=== PATIENT | male | born 1995 | race African-American/Black ===

== ENCOUNTER 2020-09-08 07:41 | Emergency (ER) | payer MEDICAID, SELFPAY ==
[2020-09-08 07:52] VITALS: BP 130/83; PULSE 91; RESP 16; TEMP 37.1; O2SAT 98; BMI 26.2
--- NOTE | 2020-09-08 08:30 | PC.NURSE ---
JENNYP (LYUDMILA) AT BEDSIDE, PT AWARE OF PLAN OF CARE.
--- NOTE | 2020-09-08 08:38 | CT_ITS ---
EXAMINATION: CT HEAD WITHOUT CONTRAST CLINICAL INFORMATION: Headache and vomiting COMPARISON: None TECHNIQUE: Contiguous axial imaging was performed from the skull base to vertex without intravenous administration of contrast. This CT examination was performed using dose optimization techniques as appropriate, variously including the following: *Automated exposure control *Adjustment of mA and/or kV according to patient size (this includes techniques or standardized protocols for targeted exams where dose is matched to indication/reason for exam; i.e. extremities or head) *Use of iterative reconstruction technique DLP: 828 mGy-cm FINDINGS: There is no evidence of acute intracranial hemorrhage or territorial infarction. No abnormal mass effect or midline shift is seen. [place] to white matter differentiation is well preserved. No extra-axial fluid collections are identified. The ventricles are normal in size. There is no abnormal attenuation within the brain parenchyma. The osseous structures are normal. There are small polyps or cysts in the right maxillary and sphenoid sinuses. IMPRESSION: No acute intracranial findings.
--- NOTE | 2020-09-08 08:40 | XR_ITS ---
EXAMINATION: XR CHEST CLINICAL INFORMATION: Headache, vomiting COMPARISON: Chest radiographs 11/14/2010 TECHNIQUE: Portable upright AP view of the chest was obtained. FINDINGS: The lungs are clear. There is no airspace consolidation, pleural reaction, or visible effusion. The heart is normal in size. The hilar and mediastinal contours are normal. IMPRESSION: Unremarkable examination.
--- NOTE | 2020-09-08 08:52 | ED_ITS ---
HPI - Headache General Chief Complaint: Headache Stated Complaint: HEADACHE Time Seen by Provider: 09/08/20 08:27 Source: patient Mode of arrival: ambulatory Limitations: no limitations History of Present Illness HPI Narrative: 25-year-old male with no known medical history here with generalized headache for the last 3-4 days. The patient says that he has a generalized headache with photophobia and nausea and vomiting. For the last 48 hours he has had a fever with a max temp of 101.8 degrees. He also has ass ociated neck pain. No upper respiratory symptoms, abdominal pain, diarrhea. Denies sick contact. denies substance use. Had testing for COVID yesterday, results pending. MD elicited complaint: headache Onset description: gradually Location: generalized Severity: moderate Quality & Timing: constant Exacerbating factors: light and noise Relieving factors: nothing Associated symptoms: fever, nausea, vomiting, neck stiffness, photophobia and sensitivity to sound Treatments prior to arrival: acetaminophen, ibuprofen and other ( Excedrin) Related Data Previous Rx's Medication Instructions Recorded cyclobenzaprine 10 mg PO TID PRN #10 tab 09/08/20 ibuprofen 800 mg PO Q8H PRN #20 tab 09/08/20 Allergies Allergy/AdvReac Type Severity Reaction Status Date / Time No Known Allergies Allergy Unverified 08/10/20 16:25 Review of Systems Review of Systems: Yes all other systems are reviewed and are negative Constitutional: Constitutional: Reports no additional constitutional complaints, Denies body ache(s), Denies chills, Reports fever(s), Reports headache(s) and Denies weakness Eyes: Eyes: Reports no additional eye complaints, Denies change in vision and Reports photophobia ENT: Reports system reviewed and no additional complaints, except as documented, Denies dizziness, Reports headache(s), Denies nasal congestion, Denies nasal discharge and Reports neck pain Cardiovascular: Cardiovascular: Reports no additional cardiovascular complaints, Denies chest pain, Denies leg edema and Denies dyspnea Respiratory: Respiratory: Reports no additional respiratory complaints, Denies cough and Denies dyspnea Gastrointestinal: Gastrointestinal: Reports no additional gastrointestinal complaints, Denies abdominal pain, Denies diarrhea, Denies nausea and Denies vomiting Genitourinary: Genitourinary: Denies urinary incontinence Musculoskeletal: Musculoskeletal: Reports no additional musculoskeletal complaints, Denies back pain, Denies arthralgias, Denies joint swelling, Reports neck pain, Denies numbness and Denies tingling Integumentary/Breasts: Skin/Breast: Reports system reviewed and no additional complaints, except as docu and Denies rash Neurologic: Reports system reviewed and no additional complaints, except as documented, Denies Abnormal speech present, Denies dizziness, Reports headach e(s), Denies numbness, Denies tingling and Denies weakness PMFSH Past Medical History Attestation statement: The following information was validated with the patient. Source: nursing notes reviewed Medical History Head ache Shingles Social History Social History Alcohol intake: never Smoking Status: Current every day smoker Use of substances other than those prescribed or required for medical reasons: No Advance Directives: No Advance Directives Information Provided: Yes Physical Exam Vital Signs: Vital Signs: Vital Signs Temp Pulse Resp BP Pulse Ox 09/08/20 11:58 98.2 F 63 18 119/74 09/08/20 10:30 68 14 116/70 09/08/20 10:05 74 16 129/77 09/08/20 07:52 98.8 F 91 16 130/83 98 Body Mass Index 26.2 Const: General: cooperative, healthy appearing, comfortable and no acute distress Orientation/consciousness: patient oriented x3 Limitations: no limitations HENMT: Head: Yes normal to inspection Ears: hearing grossly normal bilaterally General nose exam: Normal external nose present Face and sinus: Yes normal facial exam Mouth: Normal oral and palatal mucosa present Throat: Yes posterior oropharynx normal Eyes: Other: Positive photophobia General: appearance normal, both eyes and all related structures Visual Hebert: normal visual hebert by confrontation Periorbital: periorbital findings normal Eyelids: Yes eyelids normal Conjunctivae: conjunctivae normal Pupils: Equal, round and reactive pupils present EOM: EOMs intact bilaterally Direct Ophthalmoscopy: photophobia Neck: Other: no lymphadenopathy. Patient has neck pain with midline tenderness at the cervical spine with pain with hyperflexion of the neck and right and left lateral rotation. Neck: Yes normal visual inspection Chest: Chest palpation & inspection: normal inspection of the chest Resp: Effort & Inspection: normal respiratory effort Auscultation: clear to auscultation bilaterally Cardio: Rate: regular rate Rhythm: regular rhythm Peripheral pulses: Peripheral pulses 2+ throughout GI: Inspection: Yes normal to inspection Palpation (GI): Soft to palpation and nontender Auscultation: normal bowel sounds Back/Spine/Pelvis: Thoracic/Lumbar Spine: thoracic and lumbar spine normal to inspection Skin: General skin exam: no rashes or lesions noted Neuro: General: patient oriented x3, no focal motor deficits and normal sensation to monofilament Cranial nerves: Yes CN's II-XII intact bilaterally, Yes Equal, round and reactive pupils present and Yes Bilaterally intact EOM present Cognition (Neuro): normal cognition Speech: No Abnormal speech present Gait exam (Neuro): Normal gait present Motor exam (neuro): 5/5 motor strength present throughout Sensory Exam: Normal double simultaneous stimulation for sensation Extrem: General: Yes normal to inspection Course Course Course Narrative: Patient here with headache, subjective fevers, neck pain, vomiting for the last few days. Will require labs including blood cultures, lactic acid, Ct head, CXR, UA and possible LP. Reevaluation(s) Reevaluation #1: CT head negative. Chest x-ray unremarkable. Labs show no evidence of leukocytosis or shift. No fever here. Less likely bacterial me ningitis. Cannot completely rule out viral meningitis. Discussed performing a lumbar puncture here in the emergency department. Discussed benefits (ruling out viral meningitis), risks (post LP HAMLIN, infection, nerve damage, paralysis). At this time patient would like to hold on performing LP. 1300- Patient is feeling improved after receiving fluids, Reglan, Benadryl and Toradol here. Again refused lumbar puncture Although is aware that without this we cannot completely rule out viral meningitis. we again discussed risks versus benefits. Patient would like to be discharged home and wait for culture results before doing further interventions. Reviewed worrisome signs and symptoms. Discussed with the patient he is welcome to return at any time. Comfortable with discharge home. MDM - Headache MDM Narrative Medical decision making narrative: 25-year-old male previously healthy here with complaints of headache, subjective fevers, neck pain, nausea, vomiting. on exam neurologic is intact. The patient does have cervical tenderness specially with hyper flexion of the neck. Considered viral syndrome, COVID infection, underlying bacterial infection (meninigitis). Lab Data Result diagrams: 09/08/20 09:08 09/08/20 09:08 Labs: Lab Results 09/08/20 09/08/20 09/08/20 Range/Units 09:08 09:08 09:08 WBC 9.4 (4.8-10.8) X10*3/uL RBC 4.87 (4.60-5.80) X10*6/uL Hgb 14.5 (14.0-18.0) g/dl Hct 43.1 (42-52) % MCV 88.5 (80-98) fL MCH 29.8 (27.0-33.0) pg MCHC 33.6 (31.0-36.0) g/dl RDW 12.4 (11.0-16.0) % Plt Count 217 (160-400) X10*3/uL MPV 9.9 (9.4-12.4) fL Immature Gran % (Auto) 0.2 (0.0-0.4) % Neut % (Auto) 67.2 (45-73) % Lymph % (Auto) 17.1 L (20-40) % [place] % (Auto) 11.2 H (2-11) % Eos % (Auto) 3.4 (0-4) % Baso % (Auto) 0.9 (0-2) % Lymph # (Auto) 1.6 (1.2-4.9) X10*3/uL [place] # (Auto) 1.1 (0.1-1.2) X10*3/uL Eos # (Auto) 0.3 (0.0-0.4) X10*3/uL Baso # (Auto) 0.1 (0.0-0.2) X10*3/uL Abs Immat Gran (auto) 0.02 (0.00-0.03) X10*3/uL Absolute Neuts (auto) 6.3 (2.0-8.3) X10*3/uL Absolute Nucleated RBC 0.000 (0.0-0.012) X10*3/uL Nucleated RBC % (auto) 0.0 (0.0-0.2) /100WBC PT 16.9 H (10.8-13.0) SEC INR 1.4 H (0.9-1.1) Hold Blue Top SEE NOTE Sodium (135-145) mmol/L Potassium (3.3-5.1) mmol/l Chloride (96-108) mmol/L Carbon Dioxide (22-29) mmol/L Anion Gap (12-20) BUN (9-16) mg/dL Creatinine (0.5-1.4) mg/dL Estim Creat Clear Calc Estimated GFR Random Glucose (60-115) mg/dL Lactic Acid 0.9 (0.5-2.0) mmol/L Calcium (8.4-10.2) mg/dL Magnesium (1.6-2.6) mg/dL Total Bilirubin (0.0-1.0) mg/dL Direct Bilirubin (0.0-0.5) mg/dL AST (5-37) U/L ALT (0-40) U/L Alkaline Phosphatase (39-117) U/L Total Protein (6.5-8.0) g/dL Albumin (3.5-5.0) g/dL Urine Color Urine Appearance Urine pH (5.0-8.0) Ur Specific [place] (1.005-1.025) Urine Protein (NEG-TRACE) MG/DL Urine Glucose (UA) (NEG) MG/DL Urine Ketones (NEG) MG/DL Urine Blood (NEG) Urine Nitrite (NEG) Ur Leukocyte Esterase (NEG) Urine RBC (0) /HPF Urine WBC (0-4) /HPF Ur Squamous Epith Cells /LPF Urine Bacteria /LPF 09/08/20 09/08/20 Range/Units 09:08 10:10 WBC (4.8-10.8) X10*3/uL RBC (4.60-5.80) X10*6/uL Hgb (14.0-18.0) g/dl Hct (42-52) % MCV (80-98) fL MCH (27.0-33.0) pg MCHC (31.0-36.0) g/dl RDW (11.0-16.0) % Plt Count (160-400) X10*3/uL MPV (9.4-12.4) fL Immature Gran % (Auto) (0.0-0.4) % Neut % (Auto) (45-73) % Lymph % (Auto) (20-40) % [place] % (Auto) (2-11) % Eos % (Auto) (0-4) % Baso % (Auto) (0-2) % Lymph # (Auto) (1.2-4.9) X10*3/uL [place] # (Auto) (0.1-1.2) X10*3/uL Eos # (Auto) (0.0-0.4) X10*3/uL Baso # (Auto) (0.0-0.2) X10*3/uL Abs Immat Gran (auto) (0.00-0.03) X10*3/uL Absolute Neuts (auto) (2.0-8.3) X10*3/uL Absolute Nucleated RBC (0.0-0.012) X10*3/uL Nucleated RBC % (auto) (0.0-0.2) /100WBC PT (10.8-13.0) SEC INR (0.9-1.1) Hold Blue Top Sodium 138 (135-145) mmol/L Potassium 4.0 (3.3-5.1) mmol/l Chloride 105 (96-108) mmol/L Carbon Dioxide 27 (22-29) mmol/L Anion Gap 10 L (12-20) BUN 12 (9-16) mg/dL Creatinine 1.09 (0.5-1.4) mg/dL Estim Creat Clear Calc 132.7 Estimated GFR > 60 Random Glucose 106 (60-115) mg/dL Lactic Acid (0.5-2.0) mmol/L Calcium 9.0 (8.4-10.2) mg/dL Magnesium 2.0 (1.6-2.6) mg/dL Total Bilirubin 0.4 (0.0-1.0) mg/dL Direct Bilirubin 0.2 (0.0-0.5) mg/dL AST 25 (5-37) U/L ALT 40 (0-40) U/L Alkaline Phosphatase 103 (39-117) U/L Total Protein 7.5 (6.5-8.0) g/dL Albumin 4.3 (3.5-5.0) g/dL Urine Color YELLOW Urine Appearance CLEAR Urine pH 6.0 (5.0-8.0) Ur Specific [place] 1.020 (1.005-1.025) Urine Protein NEG (NEG-TRACE) MG/DL Urine Glucose (UA) NEG (NEG) MG/DL Urine Ketones NEG (NEG) MG/DL Urine Blood TRACE (NEG) Urine Nitrite NEG (NEG) Ur Leukocyte Esterase NEG (NEG) Urine RBC 1-4 (0) /HPF Urine WBC 0 (0-4) /HPF Ur Squamous Epith Cells 1+ /LPF Urine Bacteria NONE /LPF Discharge Plan Discharge Clinical Impression: Acute viral syndrome Patient Disposition: Home, Self-Care Instructions: Viral Syndrome (ED) Additional Instructions: return for worsening headache, severe neck pain and continued fever as discussed Wait for the results of your Covid test Increase fluids, rest Limit screen time this may make your headache worse Prescriptions: New ibuprofen 800 mg tablet 800 mg PO Q8H PRN (Reason: pain) Qty: 20 RF: 0 cyclobenzaprine 10 mg tablet 10 mg PO TID PRN (Reason: muscle spasm) Qty: 10 RF: 0 Referrals: [facility] [Primary Care Provider] - 2 days Stand Alone Forms: Work/School Release Discharge Date/Time: 09/08/20 13:04
[2020-09-08] MEDS: diphenhydrAMINE HCL 50 MG/ML VIAL 25 MG IVPUSH (09:17)
[2020-09-08 09:18] LABS: MANUAL DIFF FLAG NO
[2020-09-08] MEDS: Metoclopramide HCl 10 MG/2 ML VIAL IVPUSH (09:18)
--- NOTE | 2020-09-08 09:23 | PC.NURSE ---
ns 1l bolus initiated, scanned x 6
[2020-09-08 09:25] LABS: Basophils Absolute Auto 0.1 X10*3/uL (0.0-0.2); Basophils Percent Auto 0.9 % (0-2); Eosinophils Absolute Auto 0.3 X10*3/uL (0.0-0.4); Eosinophils Percent Auto 3.4 % (0-4); Hematocrit 43.1 % (42-52); Hemoglobin 14.5 g/dl (14.0-18.0); Imm Gran Abs Auto 0.02 X10*3/uL (0.00-0.03); Imm Gran Pct Auto 0.2 % (0.0-0.4); Lymphocytes Absolute Auto 1.6 X10*3/uL (1.2-4.9); Lymphocytes Percent Auto 17.1 % (20-40); Mean Corpuscular HGB Conc 33.6 g/dl (31.0-36.0); Mean Corpuscular Hemoglobin 29.8 pg (27.0-33.0); Mean Corpuscular Volume 88.5 fL (80-98); Mean Platelet Volume 9.9 fL (9.4-12.4); Monocytes Absolute Auto 1.1 X10*3/uL (0.1-1.2); Monocytes Percent Auto 11.2 % (2-11); Neutrophils Absolute Auto 6.3 X10*3/uL (2.0-8.3); Neutrophils Percent Auto 67.2 % (45-73); Platelet Count 217 X10*3/uL (160-400); Red Blood Count 4.87 X10*6/uL (4.60-5.80); Red Cell Distribution Width 12.4 % (11.0-16.0); White Blood Count 9.4 X10*3/uL (4.8-10.8)
[2020-09-08 09:26] LABS: INTERNATIONAL NORM RATIO 1.4 (0.9-1.1); Prothrombin Time 16.9 SEC (10.8-13.0)
[2020-09-08 09:45] LABS: Lactic Acid 0.9 mmol/L (0.5-2.0)
[2020-09-08 09:51] LABS: Alanine Aminotransferase 40 U/L (0-40); Albumin Level 4.3 g/dL (3.5-5.0); Alkaline Phosphatase 103 U/L (39-117); Anion Gap 10 (12-20); Aspartate Amino Transferase 25 U/L (5-37); Bilirubin Direct 0.2 mg/dL (0.0-0.5); Bilirubin Total 0.4 mg/dL (0.0-1.0); Blood Urea Nitrogen 12 mg/dL (9-16); Carbon Dioxide 27 mmol/L (22-29); Chloride 105 mmol/L (96-108); Creatinine Clr Calc Pharmacy 132.7; Estimated Glomerular Filt Rate > 60; Glucose Random 106 mg/dL (60-115); Sodium 138 mmol/L (135-145); Total Protein 7.5 g/dL (6.5-8.0)
[2020-09-08 10:05] VITALS: BP 129/77; PULSE 74; RESP 16
[2020-09-08 10:30] VITALS: BP 116/70; PULSE 68; RESP 14
[2020-09-08 10:31] LABS: Glucose Urine UA NEG (NEG); Leukocyte Esterase Urine NEG (NEG); Nitrite Urine NEG (NEG); Urine Blood TRACE (NEG); Urine Ketones NEG (NEG); Urine Protein NEG (NEG-TRACE)
[2020-09-08 10:41] LABS: Appearance Urine CLEAR; Color Urine YELLOW
[2020-09-08 10:46] LABS: Squamous Epithelial Cell Urine 1+ /LPF; WBC Urine 0 /HPF (0-4)
[2020-09-08] MEDS: Ketorolac Tromethamine 30 MG/ML VIAL IVPUSH (10:53)
--- NOTE | 2020-09-08 11:51 | PC.NURSE ---
patient a&ox3, patient states his headache is now a 1/10, pt speaking in full sentences, will continue to monitor.
[2020-09-08 11:58] VITALS: BP 119/74; PULSE 63; RESP 18; TEMP 36.8
--- NOTE | 2020-09-08 12:25 | PC.NURSE ---
pt moved to 19h, gave report to chito
== END 2020-09-08 13:04 | disposition home or self-care (01) ==
PROVIDERS: Nurse Practitioner Family; Emergency Provider Emergency Medicine
DX: B34.9 Viral infection, unspecified (principal); R05 Cough; Z20.828 Contact with and (suspected) exposure to other viral communicable diseases; Z79.899 Other long term (current) drug therapy
CPT/HCPCS: 36415; 70450; 71045; 80048; 80076; 81001; 83605; 83735; 85025; 85610; 87040; 96361; 96374; 96375; 99284; J1200; J1885; J2765

== ENCOUNTER 2020-09-12 17:22 | Emergency (ER) | payer MEDICAID, SELFPAY ==
[2020-09-12 18:09] VITALS: BP 116/71; PULSE 93; RESP 18; TEMP 37.4; O2SAT 99; BMI 25.9
--- NOTE | 2020-09-12 19:19 | ED.HA ---
HPI - Headache General Chief Complaint: Headache Stated Complaint: headaches 1 week Time Seen by Provider: 09/12/20 19:38 Source: patient Mode of arrival: ambulatory Limitations: no limitations History of Present Illness HPI Narrative: 25-year-old male presents with 1 week history of headaches and upper respiratory symptoms. He was seen approximately 1 week ago for headache, and was asked to return if symptoms persisted. He is asking for spinal tap lumbar puncture to rule out meningitis. He states to have headache and fatigue, but denies fevers, difficulty moving arms and legs, chest pain or pressure, palpitations, shortness of breath, abdominal pain, abdominal distention, dysuria, hematuria, and edema. MD elicited complaint: headache Onset (ago): week(s) (1) Onset description: gradually Location: diffuse Severity: severe Pain scale (0-10): 10 Quality & Timing: throbbing and constant Exacerbating factors: exertion, light and noise Relieving factors: nothing Context: occurred at rest Associated symptoms: neck stiffness Treatments prior to arrival: acetaminophen and ibuprofen Related Data Previous Rx's Medication Instructions Recorded cyclobenzaprine 10 mg PO TID PRN #10 tab 09/08/20 ibuprofen 800 mg PO Q8H PRN #20 tab 09/08/20 Allergies Allergy/AdvReac Type Severity Reaction Status Date / Time No Known Allergies Allergy Verified 09/12/20 18:08 Review of Systems Review of Systems: Constitutional: Positive headache, No Weight loss, No Fever, No Chills, No Night Sweats, No Fatigue, No Malaise ENT/Mouth: No Hearing loss, No Ear Pain, No Nasal Congestion, No Sinus Pain, No Hoarseness, No sore throat, No Rhinorrhea, No Swallowing Difficulty Eyes: No Eye Pain, No Swelling, No Redness, No Foreign Body, No Discharge, No Vision Changes Cardiovascular: No Chest Pain, No SOB, No Dyspnea on Exertion, No Orthopnea, No Edema, No Palpitations Respiratory: No Cough, No Sputum, No Wheezing, No Smoke Exposure, No Dyspnea Gastrointestinal: No Nausea, No Vomiting, No Diarrhea, No Constipation, No abdominal Pain, No Hematochezia, No Melena Genitourinary: no irregular bleeding, No Dysuria, No Urinary Frequency, No Hematuria, No Urinary Incontinence, No Urgency, No Flank Pain, No Urinary Flow Changes, No Hesitancy Musculoskeletal: No joint pain, No Myalgias, No Joint Swelling Skin: No Skin Lesions, No rash Neuro: No Weakness, No Numbness, No Paresthesias, No Loss of Consciousness, No Dizziness, No Headache Psych: No Anxiety/Panic, No Depression, No SI/HI/AH/VH, No Social Issues, Heme/Lymph: No Bruising, No Bleeding,No Lymphadenopathy Endocrine: No Polyuria, No Polydipsia, No Temperature Intolerance PMFSH Past Medical History Attestation statement: The following information was validated with the patient. Medical History Head ache Shingles Social History Social History Alcohol intake: never Smoking Status: Never smoker Advance Directives: No Advance Directives Information Provided: Yes Physical Exam Vital Signs: Vital Signs: Vital Signs Temp Pulse Resp BP Pulse Ox 09/12/20 21:24 118/72 09/12/20 21:23 73 16 98 09/12/20 19:33 98.4 F 87 18 112/75 99 09/12/20 18:09 99.3 F 93 18 116/71 99 Body Mass Index 25.9 Appearance: Alert. Oriented X3. No acute distress. Afebrile. Head: Normal external exam. Normocephalic. Atraumatic. No Boyd signs noted. No raccoon eyes noted Eyes: PERRLA. EOMI. Conjunctiva and sclera normal. Eyelids normal. ENT: EAC normal. TM's Normal. Pharynx normal. Uvula midline. Moist mucous membranes. No trismus noted. No drooling noted. No muffled voice noted. Neck: Normal inspection. Neck supple. No adenopathy. Thyroid Normal. No meningeal signs. No neck mass noted. CVS: Normal heart rate and rhythm. Heart sound normal. No murmurs noted. Pulses normal throughout. Respiratory: No respiratory distress. Painless inspiration. Breath sounds normal. No wheezes/rales/rhonchi noted. Chest nontender. No accessory muscle usage noted or decreased air movement noted. Abdomen: Soft and nontender. Bowel sounds normal in all 4 quadrants. No distention noted. No organomegaly noted. No visible injury noted. Back: No CVA tenderness. Full range of motion noted. Skin: Skin warm and dry. Normal skin color. Normal skin turgor. No rashes/lesions/lacerations noted. Extremities: No lower extremity edema. Extremities exhibit normal range of motion. Extremities nontender. Neuro: No motor deficit. strength 5/5 to all extremities. No sensory deficit. Reflexes normal to bilateral patella. Negative Brudzinski's. Negative Kernig's. Course Course Course Narrative: Patient presents with 1 week of headache, has concerns for about meningitis. After detailed history and exam, while his headache is concerning I do not feel he has meningitis. He is afebrile, has negative Kernig and Brudzinski sign, plan discussed with patient for IV hydration, pain management and Fioricet. CT scan of head 1 week ago was negative for acute findings. he does not report any trauma, loss of consciousness, pain on extraocular movements, changes in vision or loss of balance To indicate a need for repeat CT scan of head. If the pain is not alleviated with these medications then we will consider lumbar puncture, patient does agree with this plan. Re-evaluation of patient approximately 1 and 1/2 hours after medication, patient states that he does not have any pain at this time. Discussion regarding having patient discharged home with Fioricet. At this time lumbar puncture is not indicated as meningitis is low on the differential list. Patient does understand that if symptoms persist or get worse that he is welcome to return to the emergency department. He does understand that he must follow-up with his primary care as this may be migraine syndrome. Patient verbalized understanding of and agrees to plan of care discharge home. MDM - Headache Differential Diagnosis Differential diagnosis: Likely migraine, tension headache, subarachnoid hemorrhage, headache and meningitis Medical Records Attestation: I reviewed the patient's medical records. Lab Data Attestation: I reviewed the patient's lab results. Discharge Plan Discharge Clinical Impression: Headache, Migraine Patient Disposition: Home, Self-Care Instructions: Migraine Headache (ED), Acute Headache (ED) Additional Instructions: you were evaluated for headache. Please follow-up with your primary care provider as you may need further workup for possible migraine syndrome. We prescribed with Fioricet. Please take this medication as prescribed. Thank you for choosing this emergency department for evaluation. Please follow-up with primary care physician as needed. Return to the emergency department for any new, concerning, or worsening symptoms. Prescriptions: No Action ibuprofen 800 mg tablet 800 mg PO Q8H PRN (Reason: pain) Qty: 20 RF: 0 cyclobenzaprine 10 mg tablet 10 mg PO TID PRN (Reason: muscle spasm) Qty: 10 RF: 0 Interventions: ED Discharge Assessment Last Done: 09/12/20 22:02 Discharge Date/Time: 09/12/20 22:13
[2020-09-12 19:33] VITALS: BP 112/75; PULSE 87; RESP 18; TEMP 36.9; O2SAT 99
[2020-09-12] MEDS: dexAMETHasone sod phosphate 4 MG/ML VIAL 6 MG IVPUSH (20:02)
[2020-09-12] MEDS: Ketorolac Tromethamine 30 MG/ML VIAL IVPUSH (20:02)
[2020-09-12] MEDS: ondansetron HCL 4 MG/2 ML VIAL IVPUSH (20:02)
[2020-09-12] MEDS: 0.9 % Sodium Chloride 1,000 ML 999 ML IVCONT (20:02)
--- NOTE | 2020-09-12 20:14 | PC.NURSE ---
pt c/o 2/10 neck pain, residual from migraine several days ago. skin pwd, resp even and nonlaboured. medicated as per emr, pt refused fioricet.
[2020-09-12 21:23] VITALS: PULSE 73; RESP 16; O2SAT 98
[2020-09-12 21:24] VITALS: BP 118/72
== END 2020-09-12 22:13 | disposition home or self-care (01) ==
PROVIDERS: Nurse Practitioner Family; Emergency Provider Emergency Medicine Emergency Medical Services; PCP Family Medicine
DX: G43.909 Migraine, unspecified, not intractable, without status migrainosus (principal); Z20.828 Contact with and (suspected) exposure to other viral communicable diseases
CPT/HCPCS: 87635; 96361; 96374; 96375; 99284; J1100; J1885; J2405

== ENCOUNTER 2020-10-03 11:41 | Outpatient (REF) | payer MEDICAID, SELFPAY | END 2020-10-03 11:42 | disposition home or self-care (01) | LOC: HO.LAB 11:41 | PROVIDERS: Visit Provider Internal Medicine | DX: Z20.828 Contact with and (suspected) exposure to other viral communicable diseases (principal) | CPT/HCPCS: C9803; U0003 ==

== ENCOUNTER 2020-12-29 12:16 | Emergency (ER) | payer MEDICAID, SELFPAY ==
[2020-12-29 12:24] VITALS: BP 141/72; PULSE 78; RESP 16; TEMP 37.2; O2SAT 98; BMI 26.3
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
== END 2020-12-29 13:08 | disposition home or self-care (01) ==
PROVIDERS: Emergency Provider Emergency Medicine Emergency Medical Services
DX: S01.112A Laceration without foreign body of left eyelid and periocular area, initial encounter (principal); W20.8XXA Other cause of strike by thrown, projected or falling object, initial encounter; Y93.89 Activity, other specified; Y92.414 Local residential or business street as the place of occurrence of the external cause; Y99.9 Unspecified external cause status
CPT/HCPCS: 12011; 90471; 90715; 99283; 99284

== ENCOUNTER 2022-09-06 16:49 | Emergency (ER) | payer MEDICAID, SELFPAY ==
--- NOTE | ~2022-09-06 | XR_ITS ---
EXAMINATION: XR FINGER, RIGHT CLINICAL INFORMATION: Trauma COMPARISON: None TECHNIQUE: Three views of the right index finger. FINDINGS: No acute fracture or dislocation. Joint spaces are maintained. Soft tissues are unremarkable. XR/XR finger RT min 2V IMPRESSION: No acute osseous abnormality.
[2022-09-06 17:31] VITALS: BP 121/59; PULSE 85; RESP 18; TEMP 36.7; O2SAT 95; BMI 25.5
--- NOTE | 2022-09-06 17:52 | ED.EXTPRO ---
HPI - Extremity Problem General Chief complaint: Extremity Injury, Upper Stated complaint: finger inj/work inj Time Seen by Provider: 09/06/22 17:44 Source: patient Mode of arrival: ambulatory Limitations: no limitations History of Present Illness HPI Narrative: 27-year-old male no significant medical history presents to the emergency department with a work related injury with complaints of discomfort to his right index finger sp drilling into this finger with a drill at work. Patient report she was working with [employer]. Reports the discomfort is minimal, and he can move finger without difficulties. Up to date on tetanus. Denies numbness, tingling. Denies foreign body sensation. MD Complaint: extremity pain and extremity swelling Related Data Previous Rx's Medication Instructions Recorded cyclobenzaprine 10 mg tablet 10 mg PO TID PRN muscle spasm #10 09/08/20 tabs ibuprofen 800 mg tablet 800 mg PO Q8H PRN pain #20 tabs 09/08/20 cephalexin 500 mg tablet 500 mg PO Q6H 10 days #40 tabs 09/06/22 Allergies Allergy/AdvReac Type Severity Reaction Status Date / Time No Known Allergies Allergy Verified 09/06/22 17:30 Review of Systems Review of Systems: Constitutional : No Weight loss, No Fever, No Chills, No Fatigue, No Malaise ENT/Mouth : No sore throat, No Rhinorrhea Eyes: No Eye Pain, No Swelling, No Redness Cardiovascular : No Chest Pain, No SOB, No Dyspnea on Exertion, No Orthopnea, No Edema, No Palpitations Respiratory : No Cough, No Sputum, No Wheezing Gastrointestinal : No Nausea, No Vomiting, No Diarrhea, No Constipation, No abdominal Pain, No Hematochezia, No Melena Genitourinary : No Dysuria, No Urinary Frequency, No Hematuria, Musculoskeletal : + joint pain, No Myalgias, No Joint Swelling Skin : No Skin Lesions, No rash Neuro : No Weakness, No Numbness, No Dizziness, No Headache Psych : No Anxiety/Panic, No Depression All other systems reviewed and are negative Yes all other systems are reviewed and are negative [facility] Past Medical History Attestation statement: The following information was validated with the patient. Source: old records reviewed and nursing notes reviewed Medical History Head ache Shingles Social History Social History Alcohol intake: never Advance Directives: No Advance Directives Information Provided: No Physical Exam Vital Signs: Vital Signs: Last Vital Signs Temp 98.0 F 09/06/22 17:31 Pulse 85 09/06/22 17:31 Resp 18 09/06/22 17:31 BP 121/59 L 09/06/22 17:31 Pulse Ox 95 09/06/22 17:31 O2 Del Method 09/06/22 17:31 BMI result Body Mass Index 25.5 VSS Appearance: Alert.? Oriented X3.? No acute distress.? Head: Normocephalic, atraumatic, no step-offs or deformities Eyes: Pupils equal, round and reactive to light.? CVS: Normal heart rate and rhythm.? Pulses normal.? Respiratory: No respiratory distress.? Breath sounds normal.? Abdomen: Soft and nontender.? Skin: Skin warm and dry.? Normal skin color.? Normal skin turgor.? Extremities: No lower extremity edema.? No calf ttp. 5/5 strength to bilateral upper and lower extremities + puncture wound to the R. 4th finger dorsal aspect. No FB visualized. 2+ radial pulses equal and b/l. Normal cap refil to b/l UE digits. No wrist drop. Full rom to all fingers. Neuro: Oriented X 3.? No motor deficit.? No sensory deficit. Course Reevaluation(s) Reevaluation #1: Area was consult soap and water. Dermabond was applied. Patient tolerated procedure well. Educated on worrisome signs and symptoms and when to return. At this time I feel comfortable discharge. Time: 18:13 Reevaluation #2: X-ray of the right finger with no acute findings. Time: 18:14 MDM - Extremity (Nontraumatic) MDM Narrative Medical decision making narrative: [birth year]53 27 year old male presents w/ work related injury , presents with a puncture wound to the right index finger status post drilling into his finger with a drill. Up-to-date on tetanus shot. Denies numbness or tingling PE with small puncture wound to the R. 4th digit, dorsal aspect, no foreign bodies visualized, normal sensation, neurovascularly intact. Based off exam low suspicion for fractures or dislocations. Will rule out foreign bodies with x-ray. Likely puncture wound. Plan- imaging , this puncture wound cannot be approximated secondary to skin missing, therefore Dermabond will be applied to close the area. Patient will be placed in a finger splint. Medical Records Attestation: I reviewed the patient's medical records. Lab Data Attestation: I reviewed the patient's lab results. Critical Care Time Critical Care Time Critical Care Time: No Discharge Plan Discharge Clinical Impression: Work related injury, Puncture wound Patient Disposition: Home, Self-Care Additional Instructions: Take your medications as prescribed. If you were prescribed antibiotics today, it is important that you take your medication to their entirety, do not skip any doses, do not finish them early. Follow-up with your primary care provider this week. Return to the emergency department with new or worsening symptoms. Such as fevers, chills, chest pain, shortness of breath, nausea, vomiting, dizziness, headache, vision changes, lethargy In case of emergency call 911 Follow-up with work connection Prescriptions: New cephalexin 500 mg tablet 500 mg PO Q6H 10 Days Qty: 40 0RF No Action ibuprofen 800 mg tablet 800 mg PO Q8H PRN (Reason: pain) Qty: 20 0RF cyclobenzaprine 10 mg tablet 10 mg PO TID PRN (Reason: muscle spasm) Qty: 10 0RF Referrals: [facility] [Primary Care Provider] - 2 days Stand Alone Forms: Work/School Release
== END 2022-09-06 20:01 | disposition home or self-care (01) ==
PROVIDERS: Emergency Provider Emergency Medicine Emergency Medical Services
DX: S61.230A Puncture wound without foreign body of right index finger without damage to nail, initial encounter (principal); Y28.9XXA Contact with unspecified sharp object, undetermined intent, initial encounter; Y93.9 Activity, unspecified; Y92.9 Unspecified place or not applicable; Y99.0 Civilian activity done for income or pay; Z79.899 Other long term (current) drug therapy
CPT/HCPCS: 12001; 73140; 99282; 99283

== ENCOUNTER 2023-08-08 17:28 | Emergency (ER) | payer OTHER, MEDICAID, SELFPAY ==
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
[2023-08-08 18:30] VITALS: BP 113/65; PULSE 82; RESP 20; TEMP 36.8; O2SAT 98; BMI 28.6
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
== END 2023-08-08 20:39 | disposition home or self-care (01) ==
PROVIDERS: Emergency Provider Emergency Medicine Emergency Medical Services
DX: S32.010A Wedge compression fracture of first lumbar vertebra, initial encounter for closed fracture (principal); S22.080A Wedge compression fracture of T11-T12 vertebra, initial encounter for closed fracture; V43.52XA Car driver injured in collision with other type car in traffic accident, initial encounter; Y93.89 Activity, other specified; Y92.414 Local residential or business street as the place of occurrence of the external cause; Y99.9 Unspecified external cause status
CPT/HCPCS: 72100; 99282; 99283

== ENCOUNTER 2023-09-10 16:12 | Outpatient (REF) | payer OTHER, MEDICAID, SELFPAY ==
[2023-09-10 17:25] LABS: MANUAL DIFF FLAG NO
[2023-09-10 17:30] LABS: Basophils Absolute Auto 0.1 X10*3/uL (0.0-0.2); Basophils Percent Auto 1.2 % (0-2); Eosinophils Absolute Auto 0.3 X10*3/uL (0.0-0.4); Eosinophils Percent Auto 3.7 % (0-4); Hematocrit 41.2 % (42.0-52.0); Imm Gran Abs Auto 0.03 X10*3/uL (0.00-0.03); Imm Gran Pct Auto 0.3 % (0.0-0.4); Lymphocytes Absolute Auto 3.4 X10*3/uL (1.2-4.9); Lymphocytes Percent Auto 37.3 % (20-40); Mean Corpuscular Hemoglobin 30.2 pg (27.0-33.0); Mean Corpuscular Volume 88.8 fL (80.0-98.0); Mean Platelet Volume 10.2 fL (9.4-12.4); Monocytes Absolute Auto 0.7 X10*3/uL (0.1-1.2); Monocytes Percent Auto 8.1 % (2-11); Neutrophils Absolute Auto 4.5 x10*3/uL (2.0-8.3); Neutrophils Percent Auto 49.4 % (45-73); Platelet Count 233 X10*3/uL (160-400); Red Blood Count 4.64 X10*6/uL (4.60-5.80); Red Cell Distribution Width 12.9 % (11.0-16.0); White Blood Count 9.1 X10*3/uL (4.8-10.8)
[2023-09-10 17:37] LABS: Alanine Aminotransferase 26 U/L (0-40); Albumin Level 4.5 g/dL (3.5-5.0); Alkaline Phosphatase 71 U/L (39-117); Anion Gap 13 (12-20); Aspartate Amino Transferase 24 U/L (5-37); Bilirubin Total 0.8 mg/dL (0.0-1.0); Blood Urea Nitrogen 10 mg/dL (9-16); Calcium 9.9 mg/dL (8.4-10.2); Carbon Dioxide 25 mmol/L (22-29); Chloride 104 mmol/L (96-108); Estimated Glomerular Filt Rate > 60; Glucose Random 84 mg/dL (60-115); Sodium 138 mmol/L (135-145); Total Protein 7.9 g/dL (6.5-8.0)
[2023-09-10 18:15] LABS: Appearance Urine Clear; Color Urine Yellow; Glucose Urine UA Negative (Negative); Leukocyte Esterase Urine Negative (Negative); Nitrite Urine Negative (Negative); Specific Gravity - Urine 1.015 (1.005-1.025); Urine Blood Negative (Negative); Urine Ketones Negative (Negative); Urine Protein Negative (Neg-Trace)
[2023-09-10 18:23] LABS: Bacteria Urine None Seen (None Seen); Hyaline Casts Urine 0-2 /LPF (0-2); RBC Urine 0-2 /HPF (0-2); Squamous Epithelial Cell Urine 0-2 /HPF (0-2); WBC Urine 0-5 /HPF (0-5)
[2023-09-11 02:46] LABS: CT PCR NOT DETECTED (Not Detect.); NG PCR NOT DETECTED (Not Detect.)
== END 2023-09-10 16:13 | disposition home or self-care (01) ==
LOC: HO.HHCL 16:12
PROVIDERS: Visit Provider Student in an Organized Health Care Education/Training Program
DX: R39.9 Unspecified symptoms and signs involving the genitourinary system (principal); Z20.2 Contact with and (suspected) exposure to infections with a predominantly sexual mode of transmission
CPT/HCPCS: 0353U; 80053; 81001; 85025

== ENCOUNTER 2024-07-14 15:27 | Emergency (ER) | payer OTHER, MEDICAID, SELFPAY ==
[2024-07-14 15:40] VITALS: BP 121/78; PULSE 78; RESP 18; TEMP 36.8; O2SAT 98; BMI 30.3
--- NOTE | 2024-07-14 15:46 | ED_ITS ---
HPI - General Adult General Chief complaint: Wound/Laceration Stated complaint: work inj, tree debris split lip Time Seen by Provider: 07/14/24 17:35 Source: patient Mode of arrival: ambulatory Limitations: no limitations History of Present Illness ED Provider: Ladan Dickey PA-C HPI narrative: Patient is a 29 year old assigned male at with no reported medical history presenting to the emergency department today with a lower lip laceration. Patient states that he got hit in the mouth by a tree branch while at work. Patient states that he is up to date on tetanus. Patient denies any dizziness, lightheadedness, abdominal pain, nausea, vomiting, fever, chills, blurry vision, double vision, loss of vision, chest pain, difficulty breathing, shortness of breath, back pain, night sweats, pain with urination, increased urinary frequency, increased urinary urgency, blood in his urine or stool, syncope or a near syncopal episode, bowel incontinence, bladder incontinence, or any other complaints at this time. Location: mouth Severity: mild Relieving factors: none Exacerbating factors: none Associated symptoms: denies other symptoms Treatments prior to arrival: none Related Data Previous Rx's ?Medication ?Instructions ?Recorded cyclobenzaprine 10 mg tablet 10 mg PO TID PRN muscle spasm #10 09/08/20 tabs ibuprofen 800 mg tablet 800 mg PO Q8H PRN pain #20 tabs 09/08/20 cephalexin 500 mg tablet 500 mg PO Q6H 10 days #40 tabs 09/06/22 lidocaine 5 % topical patch 1 patch topical DAILY #15 ea 08/08/23 amoxicillin 875 mg-potassium 1 tab PO BID 10 days #20 tabs 07/14/24 clavulanate 125 mg tablet Allergies Allergy/AdvReac Type Severity Reaction Status Date / Time No Known Allergies Allergy Verified 07/14/24 15:45 Review of Systems 2 Constitutional: Constitutional: Reports no additional constitutional complaints, Denies chills, Denies fever(s) and Denies night sweats Eyes: Eyes: Reports no additional eye complaints, Denies blurry vision, Denies change in vision, Denies diplopia, Denies eye discharge, Denies loss of vision and Denies eye pain ENT: Denies dizziness Comments: lower lip laceration Cardiovascular: Cardiovascular: Reports no additional cardiovascular complaints, Denies chest pain, Denies lightheadedness, Denies Loss of Consciousness and Denies dyspnea Respiratory: Respiratory: Reports no additional respiratory complaints and Denies dyspnea Gastrointestinal: Gastrointestinal: Reports no additional gastrointestinal complaints, Denies abdominal pain, Denies melena, Denies hematochezia, Denies change in bowel habits and Denies change in stool character Genitourinary: Genitourinary: Reports no additional male genitourinary complaints, Denies hematuria, Denies oliguria, Denies difficulty urinating, Denies dysuria, Denies urinary frequency, Denies urinary hesitancy, Denies urinary incontinence and Denies urinary urgency Musculoskeletal: Musculoskeletal: Reports no additional musculoskeletal complaints, Denies numbness and Denies tingling Neurologic: Denies dizziness, Denies loss of vision, Denies numbness and Denies tingling Psychiatric: Psychiatric: Reports no additional psychiatric complaints Endocrine: Endocrine: Reports no additional endocrine complaints Hematologic/Lymphatic: Hematologic/Lymphatic: Reports no additional hematologic/lymphatic complaints Allergic/Immunologic: Allergic/Immunologic: Reports no additional allergic/immunologic complaints [facility] Past Medical History Attestation statement: The following information was validated with the patient. Source: old records reviewed and nursing notes reviewed Medical History Head ache Shingles Social History Social History Alcohol intake: never Advance Directives: No Advance Directives Information Provided: No Do you have a plan to hurt others: No Plan Physical Exam ED Vital Signs: Vital Signs - 24 hr 07/14/24 15:40 07/14/24 19:05 Temperature 98.2 F 98.2 F Pulse Rate 78 78 Respiratory Rate 18 18 Blood Pressure 121/78 121/78 Pulse Oximetry 98 98 Oxygen Delivery Method Room Air Room Air BMI result Body Mass Index 30.3 Const General: cooperative, no acute distress, alert and awake Nutritional Appearance: well nourished Orientation/consciousness: patient oriented x3 Limitations: no limitations HENMT Head: Yes normal to inspection and Yes atraumatic Ears: hearing grossly normal bilaterally and external ears normal General nose exam: Normal external nose present, no nasal discharge noted and no epistaxis Face and sinus: Yes normal facial exam and No abrasion Face images: 2 1. 0.5cm oval type laceration that minimally crosses the [place] boarder Mouth: Normal oral and palatal mucosa present, no drooling and no muffled voice Eyes General: appearance normal, both eyes and all related structures Periorbital: periorbital findings normal Eyelids: Yes eyelids normal Conjunctivae: conjunctivae normal Pupils: Equal, round and reactive pupils present EOM: EOMs intact bilaterally Neck Neck: Yes normal visual inspection, Yes full ROM and Yes no lymphadenopathy Chest Chest palpation & inspection: normal inspection of the chest Resp Effort & Inspection: normal respiratory effort and able to speak in complete sentences GI Inspection: Yes normal to inspection Neuro General: patient oriented x3 and moves all extremities Cranial nerves: Yes Equal, round and reactive pupils present Cognition (Neuro): normal cognition Extrem General: Yes normal to inspection, Yes full ROM and Yes capillary refill normal Psych Appearance: grossly normal Mental Status: mental status grossly normal Affect: normal affect Attitude: cooperative Thought process: Normal thought process present Thought content: Normal thought content present Insight: Good insight present (Psych) Course Course Course Narrative: RME, this is a rapid medical exam performed by Vlad Chao please refer to primary provider for complete H&P- 29-year-old male presents for evaluation of a small laceration to the right lower lip. It is about a 1 cm laceration of the lip that approaches the yoselin border. Will require closure Medications Administered Discontinued Medications Generic Name Dose Route Start Last Admin Trade Name Mayte PRN Reason Stop Dose Admin Lidocaine HCl 1 appl 07/14/24 17:43 07/14/24 17:49 Lidocaine 4 % Cream Kit TOPICAL 07/14/24 17:44 1 appl ONCE ONE Administration Protocol Procedures Laceration Laceration 1: Site: lip Side (If applicable): right Size (cm): 0.5 Description: involves y[place]elin border Depth: simple, single layer Local Anesthetic: lidocaine 1% Pre-repair: wound explored, irrigated extensively and deep structures intact Skin layer closed with: vicryl Size (cm): 5-0 Number of sutures: 2 Technique: simple, interrupted Medical Decision Making Medical Decision Making MDM Narrative: Patient is a 29 year old assigned male at with no reported medical history presenting to the emergency department today with a right sided lower lip laceration. Patient's physical exam was as noted in the physical exam portion of this note. I explained my physical exam findings to the patient. I answered all questions asked by the patient. Patient's laceration was repaired with 2 dissolvable sutures, without incident, per procedure note. I stressed the importance of the patient taking his medication as directed (either prescribed or as the over the counter packaging recommends). I stressed the importance of the patient following up with his primary care provider. I stressed the importance of the patient returning to the emergency department immediately if his symptoms were to worsen or if he were to develop any dizziness, shortness of breath, difficulty breathing, chest pain, blurry vision, loss of vision, nausea, vomiting, abdominal pain, fever, chills, back pain, or any other complaints. Patient verbalized agreement and understanding with this treatment plan and discharge. Differential Diagnosis Differential Diagnoses: The differential diagnosis associated with the presentation includes Lower lip laceration Admission/Observation Consideration of admission/observation: Escalation of care including admission/observation considered Patient would have been admitted to the hospital had his clinical presentation warranted hospital admission. Tests considered The following testing was considered but not selected: I considered obtaining a CT scan of the head, c-spine, and face however, the patient's current clinical presentation and mechanism of injury does not warrant this. I discussed this with the patient who verbalized understanding and agreement. Prescription Management I considered prescription management with: Antibiotic (given patient's mechanism of injury and current clinical presentation, will cover with prophylactic ABX) Discharge Plan Discharge Clinical Impression: Laceration Patient Disposition: Home, Self-Care Instructions: Care For Your Absorbable Stitches (ED) Additional Instructions: Follow up with your primary care provider and given this was a work place injury, work connection. Return to the emergency department immediately if your symptoms worsen or if you develop any dizziness, shortness of breath, difficulty breathing, chest pain, blurry vision, loss of vision, nausea, vomiting, abdominal pain, fever, chills, back pain, or any other complaints. Prescriptions: New amoxicillin-pot clavulanate 875-125 mg tablet 1 tab PO BID 10 Days Qty: 20 0RF No Action ibuprofen 800 mg tablet 800 mg PO Q8H PRN (Reason: pain) Qty: 20 0RF cyclobenzaprine 10 mg tablet 10 mg PO TID PRN (Reason: muscle spasm) Qty: 10 0RF cephalexin 500 mg tablet 500 mg PO Q6H 10 Days Qty: 40 0RF lidocaine 5 % adhesive patch,medicated 1 patch topical DAILY Qty: 15 0RF Rx Instructions: leave on most painful area for up to 12 hrs Referrals: [facility] [place] Family Medicine [Provider Group] (Call to establish and follow up with a primary care provider. If you already have a primary care provider, please follow up with them.) [facility] [place] Primary Care, [place] [Provider Group] (Call to establish and follow up with a primary care provider. If you already have a primary care provider, please follow up with them.) [facility] [place] Primary Care,Scott [Provider Group] (Call to establish and follow up with a primary care provider. If you already have a primary care provider, please follow up with them.) [facility] [Provider Group] (Given this was a work place injury, please call to establish and follow up with work connection.) Stand Alone Forms: Work/School Release Interventions: ED Discharge Assessment Last Done: 07/14/24 19:05 Discharge Date/Time: 07/14/24 19:05 Print Language: [place] Islander
--- OUTSIDE RECORDS SUMMARY | 2024-07-14 17:35 | XMS_ITS | Continuity of Care Document ---
Author Organization [facility] Address [address] [place] [id number]- Care Team Providers Care English As A Second Language Instructor Name Role Phone Not on Staff, PCP Primary Care Physician Unavail able Encounter [facility] Date(s): 09/15/23 - 10/15/23 [facility] [address] [place] [id number]- Allergies, Adverse Reactions, Alerts No Known Medication Allergies Medications bacitracin ophthalmic 500 u/gm ointment See Instructions, 0.25 inches right eyelid Every 4 hours, # 3.5 Gm, 0 Refills, Maintenance, 11/28/16 20:27:24, Ointment Start Date: 11/28/16 Status: Ordered gabapentin 300 mg oral capsule 300 mg, 1, capsule, By Mouth, 3 times a day, PRN, # 90 capsule, Refills 0, Tot. Refills 0, Maintenance, Pain , Moderate, 11/28/16 20:43:35, Print Requisition Start Date: 11/28/16 Status: Ordered Social History Social History Type Response Smoking Status Current every day sm oker; Type: Cigarettes; Tobacco use times per day: 2-3 cigarettes per day; entered on: 11/28/16 Sex Patient Care team information Care Team Personnel Name: Not on Staff, PCP Position: S Physician (General Medicine) Member Role: PCP
[2024-07-14] MEDS: Lidocaine 4 % Cream KIT 1 APPL TOPICAL (17:49)
[2024-07-14 19:05] VITALS: BP 121/78; PULSE 78; RESP 18; TEMP 36.8; O2SAT 98
== END 2024-07-14 19:05 | disposition home or self-care (01) ==
PROVIDERS: Emergency Provider Emergency Medicine
DX: S01.511A Laceration without foreign body of lip, initial encounter (principal); W22.8XXA Striking against or struck by other objects, initial encounter; Y93.9 Activity, unspecified; Y92.9 Unspecified place or not applicable; Y99.0 Civilian activity done for income or pay
CPT/HCPCS: 12011; 99283; 99284

== ENCOUNTER 2024-10-09 06:30 | Emergency (ER) | payer MEDICAID, SELFPAY ==
--- NOTE | ~2024-10-09 | CT_ITS ---
EXAMINATION: CT ABDOMEN AND PELVIS WITH CONTRAST CLINICAL INFORMATION: Right upper quadrant epigastric pain. COMPARISON: Most recent abdominal ultrasound dated 04/23/2019. TECHNIQUE: Multidetector volumetric images were obtained from the superior aspect of the liver through the pubic symphysis following administration 85 mL of Omnipaque 350 intravenous contrast. Sagittal and coronal reformatted images were obtained on the technologist's workstation. Oral contrast: No This CT examination was performed using dose optimization techniques as appropriate, variously including the following: *Automated exposure control *Adjustment of mA and/or kV according to patient size (this includes techniques or standardized protocols for targeted exams where dose is matched to indication/reason for exam; i.e. extremities or head) *Use of iterative reconstruction technique DLP: 720 mGy-cm FINDINGS: LUNG BASES: The visualized lung bases are unremarkable. LIVER, GALLBLADDER, AND BILIARY TREE: The liver is normal in size, shape, and attenuation. No focal hepatic lesion or biliary ductal dilatation is present. The gallbladder is unremarkable with no evidence of radiopaque gallstones, gallbladder wall thickening, or obvious pericholecystic inflammatory changes. PANCREAS: Unremarkable. SPLEEN: Unremarkable. ADRENAL GLANDS: Unremarkable. KIDNEYS AND URETERS: The kidneys are normal in size, shape, and attenuation. No hydronephrosis, hydroureter, or calculi seen. No perinephric stranding. BLADDER: Unremarkable. GASTROINTESTINAL TRACT: No small- or large-bowel obstruction. No bowel wall thickening or inflammatory change. Unremarkable appendix. PERITONEAL CAVITY: No intra-abdominal free air or free fluid. No intra-abdominal mass or organized fluid collection/abscess formation. ABDOMINAL WALL: No significant hernia is appreciated. LYMPH NODES: No lymphadenopathy. VASCULAR: Unremarkable. PELVIC VISCERA: The prostate and seminal vesicles are unremarkable. OSSEOUS STRUCTURES: Unremarkable. CT/CT abdomen pelvis w IV con IMPRESSION: 1. No small- or large-bowel obstruction. No bowel wall thickening or inflammatory change. Unremarkable appendix. 2. No intra-abdominal mass, lymphadenopathy, or ascites. Fleischner guidelines were followed. Electronically signed by: Terry Badillo MD 10/09/2024 09:50 AM [facility] [place]: -[id number]
--- NOTE | ~2024-10-09 | US_ITS ---
EXAMINATION: US SCROTUM CLINICAL INFORMATION: Pain and blood in urine. COMPARISON: None available. TECHNIQUE: A sonogram of the scrotum was performed assessing acosta-scale appearance and color Doppler flow. Spectral Doppler analysis of the arterial and venous flow were performed in the testes bilaterally. FINDINGS: RIGHT: Right testicle measures 4.7 x 2.3 x 3.0 cm, volume 16 mL. No focal testicular parenchymal lesions are visualized. Spectral Doppler analysis of the arterial and venous flow is increased in the right testis. Right epididymal head demonstrates increased vascularity but normal in size. Small hydrocele but no varicocele is seen. Right epididymal Doppler flow is increased. Tiny 3 mm epididymal cysts most consistent with a spermatocele. Minor microlithiasis incidentally noted. LEFT: Left testicle measures 4.6 x 2.1 x 3.1 cm, volume 16 mL. No focal testicular parenchymal lesions are visualized. Spectral Doppler analysis of the arterial and venous flow is increased in the left testis. Left epididymal head is normal in size. Small complex hydrocele but no Left epididymal Doppler flow is US/US scrotum IMPRESSION: Findings most consistent with right-sided greater than left epididymoorchitis. No abscess. Small bilateral hydroceles. Electronically signed by: Cuong Medina MD 10/09/2024 10:59 AM [facility]
--- NOTE | ~2024-10-09 | US_ITS ---
EXAMINATION: US SCROTUM CLINICAL INFORMATION: Pain and blood in urine. COMPARISON: None available. TECHNIQUE: A sonogram of the scrotum was performed assessing acosta-scale appearance and color Doppler flow. Spectral Doppler analysis of the arterial and venous flow were performed in the testes bilaterally. FINDINGS: RIGHT: Right testicle measures 4.7 x 2.3 x 3.0 cm, volume 16 mL. No focal testicular parenchymal lesions are visualized. Spectral Doppler analysis of the arterial and venous flow is increased in the right testis. Right epididymal head demonstrates increased vascularity but normal in size. Small hydrocele but no varicocele is seen. Right epididymal Doppler flow is increased. Tiny 3 mm epididymal cysts most consistent with a spermatocele. Minor microlithiasis incidentally noted. LEFT: Left testicle measures 4.6 x 2.1 x 3.1 cm, volume 16 mL. No focal testicular parenchymal lesions are visualized. Spectral Doppler analysis of the arterial and venous flow is increased in the left testis. Left epididymal head is normal in size. Small complex hydrocele but no Left epididymal Doppler flow is US/US scrotum doppler IMPRESSION: Findings most consistent with right-sided greater than left epididymoorchitis. No abscess. Small bilateral hydroceles. Electronically signed by: Cuong Medina MD 10/09/2024 10:59 AM [facility]
[2024-10-09 06:41] VITALS: BP 145/87; PULSE 93; RESP 16; TEMP 36.8; O2SAT 99; BMI 30.4
--- NOTE | 2024-10-09 07:14 | ED.ABDPAIN ---
HPI - Abdominal Pain General Chief Complaint: Abdominal Pain Stated Complaint: abd pain Time Seen by Provider: 10/09/24 06:44 Source: patient and family Mode of arrival: ambulatory Limitations: no limitations History of Present Illness ED Provider: DESMOND Bourne HPI narrative: 29-year-old male who denies past medical history presents with complaints of severe right-sided abdominal pain ongoing for the past 3-4 days. Patient reports he has associated nausea and vomiting with this. This is the worst pain he has ever had in his abdomen in his life. He rates his pain a 8- 9/10. He reports he last ate last night about 22:00. He took ibuprofen yesterday with little improvement in symptoms. Denies fevers, chills, sick contacts, diarrhea, hematuria, hematemesis, hematochezia, headache, vision changes, chest pain and shortness of breath. Related Data Previous Rx's ?Medication ?Instructions ?Recorded cyclobenzaprine 10 mg tablet 10 mg PO TID PRN muscle spasm #10 09/08/20 tabs ibuprofen 800 mg tablet 800 mg PO Q8H PRN pain #20 tabs 09/08/20 cephalexin 500 mg tablet 500 mg PO Q6H 10 days #40 tabs 09/06/22 lidocaine 5 % topical patch 1 patch topical DAILY #15 ea 08/08/23 amoxicillin 875 mg-potassium 1 tab PO BID 10 days #20 tabs 07/14/24 clavulanate 125 mg tablet doxycycline hyclate 100 mg capsule 100 mg PO BID 10 days #20 caps 10/09/24 ketorolac 10 mg tablet 10 mg PO TID PRN pain 5 days #15 10/09/24 tabs levofloxacin 500 mg tablet 500 mg PO DAILY 10 days #10 tabs 10/09/24 Allergies Allergy/AdvReac Type Severity Reaction Status Date / Time No Known Allergies Allergy Verified 10/09/24 06:41 Review of Systems Review of Systems Yes all other systems are reviewed and are negative PMFSH Past Medical History Attestation statement: The following information was validated with the patient. Source: old records reviewed and nursing notes reviewed Medical History Head ache Shingles Social History Social History Alcohol intake: never Advance Directives: No Advance Directives Information Provided: No Physical Exam ED Vital Signs: Vital Signs - 24 hr 10/09/24 06:41 10/09/24 07:44 10/09/24 09:57 Temperature 98.3 F Pulse Rate 93 Respiratory Rate 16 20 20 Blood Pressure 145/87 H Pulse Oximetry 99 Oxygen Delivery Method Room Air BMI result Body Mass Index 30.4 vss Appearance: Alert.? Oriented X3.? No acute distress.? Head: Normocephalic, atraumatic, no step-offs or deformities Eyes: Pupils equal, round and reactive to light.? ENT: Pharynx normal.? Neck: Normal inspection.? Neck supple.? CVS: Normal heart rate and rhythm.? Pulses normal.? Respiratory: No respiratory distress.? Breath sounds normal.? Abdomen: Soft and tenderness to palpation to right lower quadrant Skin: Skin warm and dry.? Normal skin color.? Normal skin turgor.? Extremities: No lower extremity edema.? No calf ttp. 5/5 strength to bilateral upper and lower extremities Neuro: Oriented X 3.? No motor deficit.? No sensory deficit. CN 2-12 intact Course Reevaluation(s) Reevaluation #1: Your CBC unremarkable. Chemistry with no acute findings needing intervention. Mild elevation in BUN and creatinine will encourage p.o. hydration. Lactic acid normal. UA with infection large amount of leukocyte esterases, blood in 3+ bacteria. Will give ceftriaxone. I did speak to patient about STDs he tells me he does not think he has when he does not feel like he needs prophylactic treatment for it. Will treat for UTI with ceftriaxone at this time. CT abdomen and pelvis with no small or large bowel obstruction. No bowel wall thickening or inflammatory changes. Unremarkable appendix. No intra-abdominal mass lymphadenopathy or ascites. Will order Doppler of scrotum as patient reports some discomfort in his penis/scrotum. No discharge. Time: 10:02 Reevaluation #2: Doppler study showing findings consistent with right-sided greater than left epididymo-orchitis no abscess. Small bilateral hydroceles. Patient was covered with ceftriaxone here, will discharge him with Levaquin. Will also add doxycycline. Time: 11:15 Reevaluation #3: I informed patient that sometimes gonorrhea and chlamydia can cause this. I explained to him he is receiving treatment for both of these. He verbalizes understanding. Educated patient on diagnosis and treatment plan, answered all question, patient verbalizes understanding. At this time patient will be discharged home, advised to return with new or worsening symptoms. Educated on worrisome signs and symptoms and when to return. At this time I feel comfortable discharge home. Time: 11:21 Medical Decision Making Medical Decision Making MDM Narrative: This is a 29-year-old male presenting to the emergency department with abdominal pain for the past 3-4 days progressively worsening localized to the right lower quadrant. Physical exam + RLQ ttp on exam History and physical exam with high suspicion for acute appendicitis vs obstructing uropathy. Will rule out cholecystitis although less likely. Unlikely acute abdomen, diverticulitis, pancreatitis, obstruction, metabolic derangements. Plan labs, imaging, urine Differential Diagnosis Differential Diagnoses: The differential diagnosis associated with the presentation includes (History and physical exam with high suspicion for acute appendicitis vs obstructive uropathy. Will rule out cholecystitis although less likely. Unlikely acute abdomen, diverticulitis, pancreatitis, obstruction, metabolic derangements.) Admission/Observation Consideration of admission/observation: Escalation of care including admission/observation considered Lab Data 10/09/24 07:15 10/09/24 07:15 Labs: Lab Results 10/09/24 10/09/24 Range/Units 07:15 08:17 WBC 10.4 (4.8-10.8) X10*3/uL RBC 4.59 L (4.60-5.80) X10*6/uL Hgb 14.0 (14.0-18.0) g/dl Hct 40.2 L (42.0-52.0) % MCV 87.6 (80.0-98.0) fL MCH 30.5 (27.0-33.0) pg MCHC 34.8 (31.0-36.0) g/dl RDW 13.2 (11.0-16.0) % Plt Count 250 (160-400) X10*3/uL MPV 9.3 L (9.4-12.4) fL Immature Gran % (Auto) 0.4 (0.0-0.4) % Neut % (Auto) 59.2 (45-73) % Lymph % (Auto) 26.5 (20-40) % [place] % (Auto) 9.0 (2-11) % Eos % (Auto) 3.9 (0-4) % Baso % (Auto) 1.0 (0-2) % Lymph # (Auto) 2.8 (1.2-4.9) X10*3/uL [place] # (Auto) 0.9 (0.1-1.2) X10*3/uL Eos # (Auto) 0.4 (0.0-0.4) X10*3/uL Baso # (Auto) 0.1 (0.0-0.2) X10*3/uL Abs Immat Gran (auto) 0.04 H (0.00-0.03) X10*3/uL Absolute Neuts (auto) 6.2 (2.0-8.3) x10*3/uL Absolute Nucleated RBC 0.000 (0.0-0.012) X10*3/uL Nucleated RBC % (auto) 0.0 (0.0-0.2) /100WBC Sodium 141 (135-145) mmol/L Potassium 4.0 (3.3-5.1) mmol/L Chloride 110 H (96-108) mmol/L Carbon Dioxide 22 (22-29) mmol/L Anion Gap 13 (12-20) BUN 19 H (9-16) mg/dL Creatinine 0.98 (0.5-1.4) mg/dL Estim Creat Clear Calc 164.0 Estimated GFR > 60 Random Glucose 107 (60-115) mg/dL Lactic Acid 0.6 (0.5-2.0) mmol/L Calcium 9.6 (8.4-10.2) mg/dL Total Bilirubin 0.3 (0.0-1.0) mg/dL AST 28 (5-37) U/L ALT 38 (0-40) U/L Alkaline Phosphatase 83 (39-117) U/L Total Protein 7.4 (6.5-8.0) g/dL Albumin 4.1 (3.5-5.0) g/dL Urine Color Yellow Urine Appearance Clear Urine pH 5.5 (5.0-9.0) Ur Specific Mobile 1.010 (1.005-1.025) Urine Protein Trace (Neg-Trace) mg/dL Urine Glucose (UA) Negative (Negative) mg/dL Urine Ketones Negative (Negative) mg/dL Urine Blood Large (3+) H (Negative) Urine Nitrite Negative (Negative) Ur Leukocyte Esterase Large (3+) H (Negative) Urine RBC >20 H (0-2) /HPF Urine WBC >50 H (0-5) /HPF Ur Squamous Epith Cells 0-2 (0-2) /HPF Urine Bacteria 3+ (None Seen) Hyaline Casts 0-2 (0-2) /LPF Independent Interpretation I performed an independent interpretation of an: CT Scan Radiology Impression Discussion of test interpretation with radiology: I have reviewed the radiologist's reading. External Record Review External record reviewed: Office record and Outpatient record Chronic Conditions Patient?s care impacted by: Other (denies) Medications Administered Discontinued Medications Generic Name Dose Route Start Last Admin Trade Name Mayte PRN Reason Stop Dose Admin Ceftriaxone Sodium 1 gm 10/09/24 07:48 10/09/24 09:57 Ceftriaxone Sodium 1 Gm Vial IVPUSH 10/09/24 07:49 1 gm ONCE ONE Administration Hydromorphone HCl 1 mg 10/09/24 09:30 10/09/24 09:57 Hydromorphone Hcl 1 Mg/Ml Syringe IVPUSH 10/09/24 09:31 1 mg ONCE ONE Administration Protocol Iohexol 100 ml 10/09/24 08:48 10/09/24 08:49 Iohexol 350 Mg/Ml 100 Ml Infus..Btl IV 10/09/24 08:49 85 ml ONCE ONE Administration Morphine Sulfate 5 mg 10/09/24 07:16 10/09/24 07:44 Morphine Sulfate 10 Mg/Ml Cartridge IVPUSH 10/09/24 07:17 5 mg ONCE ONE Administration Protocol Ondansetron HCl 4 mg 10/09/24 07:16 10/09/24 07:44 Ondansetron Hcl 4 Mg/2 Ml Vial IVPUSH 10/09/24 07:17 4 mg ONCE ONE Administration Critical Care Time Critical Care Time Critical Care Time: Yes Total Critical Care Time: 35 Attestation: I attest to this time spent taking care of the patient, obtaining history, physical, reviewing labs, imaging, treatment of patients condition +/- specialist/hospitalist consult Discharge Plan Discharge Clinical Impression: Hematuria, UTI (urinary tract infection), Acute epididymo-orchitis Patient Disposition: Home, Self-Care Instructions: Urinary Tract Infection in Men (ED), Hematuria (ED) Additional Instructions: Take your medications as prescribed. If you were prescribed antibiotics today, it is important that you take your medication to their entirety, do not skip any doses, do not finish them early. Follow-up with your primary care provider this week. Return to the emergency department with new or worsening symptoms. Such as fevers, chills, chest pain, shortness of breath, nausea, vomiting, dizziness, headache, vision changes, lethargy In case of emergency call 911 Toradol has been sent to your pharmacy, you tolerated this well in the department. Please take this as prescribed do not take this with ibuprofen, or other NSAIDs, do not mix this with alcohol. Side effects of this medication including increased risk for bleeding and possible kidney injury. Your test are done and pending you will only receive a call if they are positive. CT/CT abdomen pelvis w IV con IMPRESSION: 1. No small- or large-bowel obstruction. No bowel wall thickening or inflammatory change. Unremarkable appendix. 2. No intra-abdominal mass, lymphadenopathy, or ascites. Fleischner guidelines were followed. US/US scrotum IMPRESSION: Findings most consistent with right-sided greater than left epididymoorchitis. No abscess. Small bilateral hydroceles. Prescriptions: New levofloxacin 500 mg tablet 500 mg PO DAILY 10 Days Qty: 10 0RF doxycycline hyclate 100 mg capsule 100 mg PO BID 10 Days Qty: 20 0RF ketorolac 10 mg tablet 10 mg PO TID PRN (Reason: pain) 5 Days Qty: 15 0RF Rx Instructions: Tolerated IM or IV in department No Action ibuprofen 800 mg tablet 800 mg PO Q8H PRN (Reason: pain) Qty: 20 0RF cyclobenzaprine 10 mg tablet 10 mg PO TID PRN (Reason: muscle spasm) Qty: 10 0RF cephalexin 500 mg tablet 500 mg PO Q6H 10 Days Qty: 40 0RF lidocaine 5 % adhesive patch,medicated 1 patch topical DAILY Qty: 15 0RF Rx Instructions: leave on most painful area for up to 12 hrs amoxicillin-pot clavulanate 875-125 mg tablet 1 tab PO BID 10 Days Qty: 20 0RF Referrals: [facility] [place] Urology Services [Provider Group] - 2 days Allison Villela MD [Primary Care Provider] - 2 days Stand Alone Forms: Work/School Release Print Language: Belarusian
[2024-10-09 07:20] LABS: MANUAL DIFF FLAG NO
[2024-10-09 07:23] LABS: Basophils Absolute Auto 0.1 X10*3/uL (0.0-0.2); Eosinophils Absolute Auto 0.4 X10*3/uL (0.0-0.4); Eosinophils Percent Auto 3.9 % (0-4); Hematocrit 40.2 % (42.0-52.0); Imm Gran Abs Auto 0.04 X10*3/uL (0.00-0.03); Imm Gran Pct Auto 0.4 % (0.0-0.4); Lymphocytes Absolute Auto 2.8 X10*3/uL (1.2-4.9); Lymphocytes Percent Auto 26.5 % (20-40); Mean Corpuscular HGB Conc 34.8 g/dl (31.0-36.0); Mean Corpuscular Hemoglobin 30.5 pg (27.0-33.0); Mean Corpuscular Volume 87.6 fL (80.0-98.0); Mean Platelet Volume 9.3 fL (9.4-12.4); Monocytes Absolute Auto 0.9 X10*3/uL (0.1-1.2); Neutrophils Absolute Auto 6.2 x10*3/uL (2.0-8.3); Neutrophils Percent Auto 59.2 % (45-73); Platelet Count 250 X10*3/uL (160-400); Red Blood Count 4.59 X10*6/uL (4.60-5.80); Red Cell Distribution Width 13.2 % (11.0-16.0); White Blood Count 10.4 X10*3/uL (4.8-10.8)
[2024-10-09 07:24] LABS: Appearance Urine Clear; Color Urine Yellow; Glucose Urine UA Negative (Negative); Leukocyte Esterase Urine Large (3+) (Negative); Nitrite Urine Negative (Negative); PH 5.5 (5.0-9.0); UMIC TRIGGER UACC YES; Urine Blood Large (3+) (Negative); Urine Ketones Negative (Negative); Urine Protein Trace mg/dL (Neg-Trace)
[2024-10-09 07:26] LABS: Bacteria Urine 3+ (None Seen); Hyaline Casts Urine 0-2 /LPF (0-2); RBC Urine >20 /HPF (0-2); Squamous Epithelial Cell Urine 0-2 /HPF (0-2); UACC Culture Trigger YES; WBC Urine >50 /HPF (0-5)
[2024-10-09 07:35] LABS: Alanine Aminotransferase 38 U/L (0-40); Albumin Level 4.1 g/dL (3.5-5.0); Alkaline Phosphatase 83 U/L (39-117); Anion Gap 13 (12-20); Aspartate Amino Transferase 28 U/L (5-37); Bilirubin Total 0.3 mg/dL (0.0-1.0); Blood Urea Nitrogen 19 mg/dL (9-16); Calcium 9.6 mg/dL (8.4-10.2); Carbon Dioxide 22 mmol/L (22-29); Chloride 110 mmol/L (96-108); Estimated Glomerular Filt Rate > 60; Glucose Random 107 mg/dL (60-115); Sodium 141 mmol/L (135-145); Total Protein 7.4 g/dL (6.5-8.0)
[2024-10-09 07:44] VITALS: RESP 20
[2024-10-09] MEDS: Morphine Sulfate 10 MG/ML CARTRIDGE 5 MG IVPUSH (07:44)
[2024-10-09] MEDS: ondansetron HCL 4 MG/2 ML VIAL IVPUSH (07:44)
[2024-10-09] MEDS: iohexoL 350 MG/ML 100 ML INFUS..BTL IV (08:49)
[2024-10-09 08:53] LABS: Lactic Acid 0.6 mmol/L (0.5-2.0)
[2024-10-09 09:57] VITALS: RESP 20
[2024-10-09] MEDS: cefTRIAXone sodium 1 GM VIAL IVPUSH (09:57)
[2024-10-09] MEDS: HYDROmorphone HCl 1 MG/ML SYRINGE IVPUSH (09:57)
[2024-10-09 11:33] VITALS: BP 106/55; PULSE 72; RESP 16; RESP 20; TEMP 36.8; O2SAT 99
[2024-10-09 11:42] VITALS: BP 106/55; PULSE 70; RESP 16; TEMP 36.7; O2SAT 99
== END 2024-10-09 11:47 | disposition home or self-care (01) ==
PROVIDERS: Physician Assistant; Emergency Provider Emergency Medicine; PCP General Practice
DX: N39.0 Urinary tract infection, site not specified (principal); B96.20 Unspecified Escherichia coli [E. coli] as the cause of diseases classified elsewhere; R31.9 Hematuria, unspecified; N45.3 Epididymo-orchitis; N43.3 Hydrocele, unspecified; R11.2 Nausea with vomiting, unspecified; N50.82 Scrotal pain; R10.31 Right lower quadrant pain; Z79.899 Other long term (current) drug therapy
CPT/HCPCS: 36415; 74177; 76870; 80053; 81001; 83605; 85025; 87040; 87086; 87088; 87186; 93975; 96374; 96375; 99284; J0696; J1171; J2270; J2405; Q9967

== ENCOUNTER 2024-11-10 10:15 | Outpatient (REF) | payer MEDICAID, SELFPAY ==
[2024-11-10 12:03] LABS: Hematocrit 42.7 % (42.0-52.0); Hemoglobin 14.6 g/dl (14.0-18.0); Mean Corpuscular HGB Conc 34.2 g/dl (31.0-36.0); Mean Corpuscular Hemoglobin 29.9 pg (27.0-33.0); Mean Corpuscular Volume 87.3 fL (80.0-98.0); Mean Platelet Volume 9.9 fL (9.4-12.4); Platelet Count 252 X10*3/uL (160-400); Red Blood Count 4.89 X10*6/uL (4.60-5.80); Red Cell Distribution Width 12.8 % (11.0-16.0); White Blood Count 6.2 X10*3/uL (4.8-10.8)
[2024-11-10 12:12] LABS: Estimated Average Glucose 103 mg/dL; Hemoglobin A1C 123.8579 umol/L; Hemoglobin A1c % 5.2 % (<6.0); Total Hemoglobin (HGBA1C) 3701.0597 umol/L
[2024-11-10 12:35] LABS: Alanine Aminotransferase 47 U/L (0-40); Albumin Level 4.6 g/dL (3.5-5.0); Alkaline Phosphatase 82 U/L (39-117); Anion Gap 11 (12-20); Aspartate Amino Transferase 37 U/L (5-37); Bilirubin Direct 0.2 mg/dL (0.0-0.5); Bilirubin Total 0.6 mg/dL (0.0-1.0); Blood Urea Nitrogen 14 mg/dL (9-16); Calcium 9.3 mg/dL (8.4-10.2); Carbon Dioxide 27 mmol/L (22-29); Chloride 105 mmol/L (96-108); Cholesterol 150 mg/dL (<200); Estimated Glomerular Filt Rate > 60; Free T4 (Free Thyroxine) 0.92 ng/dL (0.71-1.85); Glucose Random 100 mg/dL (60-115); HDL Cholesterol 29 mg/dL (>40); LDL Cholesterol Calculated 104 mg/dL (<100); Sodium 139 mmol/L (135-145); Thyroid Stimulating Hormone 0.49 uIU/mL (0.32-4.0); Total Protein 8.1 g/dL (6.5-8.0); Triglycerides 85 mg/dL (<150); Vitamin D 25-OH Total 33.4 ng/mL (>30)
[2024-11-10 12:46] LABS: Hepatitis A Antibody IgG Nonreactive (Nonreactive); ~Hepatitis A Antibody IgG 0.43 S/CO (0.00-0.99)
[2024-11-10 12:47] LABS: HBS Num1 50.39 mIU/mL (0-7.99); HBc Num1 0.13 S/CO (0.00-0.79); HBsAGNum1 0.48 S/CO (0.00-0.99); HIV AB/AG Nonreactive (Nonreactive); Hepatitis B Core Antibody Nonreactive (Nonreactive); Hepatitis B Surface Antigen Negative (Negative); ~HepC Num1 0.16 S/CO (0.00-0.79); ~Hepatitis B Surface Antibody REACTIVE (Nonreactive); ~Hepatitis C Antibody Nonreactive (Nonreactive)
[2024-11-13 17:28] LABS: RPR Rapid Plasma Reagin NON-REACTIVE (NON-REACTIVE)
== END 2024-11-10 10:16 | disposition home or self-care (01) ==
LOC: HO.HHCL 10:15
PROVIDERS: Visit Provider Family Medicine
DX: Z00.00 Encounter for general adult medical examination without abnormal findings (principal); F41.9 Anxiety disorder, unspecified
CPT/HCPCS: 36415; 80048; 80061; 80076; 82306; 83036; 84439; 84443; 85027; 86592; 86704; 86706; 86708; 86803; 87340; 87389

== ENCOUNTER 2024-12-03 09:43 | Outpatient (AMB) | payer MEDICAID, SELFPAY ==
--- NOTE | 2024-12-03 09:46 | A.OFFVIS_ITS ---
Intake Visit Reasons: [facility] [place] [facility](10/09)-Epididymoorchitis/UTI Intake Note: Pt presents to the office today for [facility] 10/09/24-Epididymoorchitis/UTI. Allergies No Known Allergies Allergy (Verified 12/03/24 09:46) HPI Comments Details: Antonio is a pleasant male. He is a patient of Dr. Silva. 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 [facility] Medical History Head ache Shingles Social History Alcohol intake: never Assessment & Plan Assessment & Plan (1) UTI (urinary tract infection), bacterial: Code(s): N39.0 - Urinary tract infection, site not specified; A49.9 - Bacterial infection, unspecified Category: Medical (2) Epididymitis: Code(s): N45.1 - Epididymitis Category: Medical Plan P.r.n. follow-up Medications: Discontinued cephalexin Discontinued Reason: Patient no longer taking 500 mg PO Q6H 10 days 40 tabs 0RF levofloxacin Discontinued Reason: Patient no longer taking 500 mg PO DAILY 10 days 10 tabs 0RF doxycycline hyclate Discontinued Reason: Patient no longer taking 100 mg PO BID 10 days 20 caps 0RF lidocaine 5% leave on most painful area for up to 12 hrs Discontinued Reason: Patient no longer taking 1 patch topical DAILY 15 ea 0RF amoxicillin-pot clavulanate 875-125 mg Discontinued Reason: Patient no longer taking 1 tab PO BID 10 days 20 tabs 0RF ketorolac Tolerated IM or IV in department Discontinued Reason: Patient no longer taking 10 mg PO TID 5 days PRN 15 tabs 0RF pain Patient Instructions: This note is constructed using voice recognition software. While every effort has been made to ensure accuracy junior loan processor errors may have been included. Imaging studies, laboratory and physical exam results were discussed and reviewed in detail. No major barriers to patient understanding were identified. An opportunity to ask questions regarding the treatment plan was provided. All questions were answered. The patient expressed understanding and agreement with the above treatment plan. The patient is aware they should contact our office by phone for worsening of their current condition or the appearance of new urologic symptoms. Compliance is encouraged with any medications and followup testing that is ordered. It is a privilege to participate in the urologic care of your patient. If you have any questions or concerns regarding treatment for the above conditions, or other urologic issues, please do not hesitate to contact me. The office telephone contact is [phone]. Sincerely, Dr Earnest Fragoso MD, [facility] - Urology Compassionate Specialist Care for the Genitourinary System Coding Level of Care Code New Pt Level 3 (94149) Diagnoses UTI (urinary tract infection), bacterial N39.0; A49.9 Epididymitis N45.1
== END 2024-12-03 10:10 | disposition home or self-care (01) ==
PROVIDERS: PCP General Practice; Visit Provider Urology
DX: N39.0 Urinary tract infection, site not specified (principal); A49.9 Bacterial infection, unspecified; N45.1 Epididymitis
CPT/HCPCS: 99203

== ENCOUNTER → 2024-12-03 09:43 | Outpatient (BNVA) | payer MEDICAID, SELFPAY | PROVIDERS: PCP General Practice; Visit Provider Urology | DX: N39.0 Urinary tract infection, site not specified (principal); A49.9 Bacterial infection, unspecified; N45.1 Epididymitis | CPT/HCPCS: 99202 ==

== ENCOUNTER 2025-03-25 20:44 | Emergency (ER) | payer MEDICAID, SELFPAY ==
--- NOTE | ~2025-03-25 | XR_ITS ---
CLINICAL HISTORY: distal thumb lac avulsion, ?fracture RIGHT FINGER X-RAYS COMPARISON: 09/06/2022. FINDINGS: A total of 3 views of the right thumb were obtained. There is no evidence of an acute fracture or dislocation. There are no bony destructive changes. No metallic foreign body. IMPRESSION: 1. No acute disease. This document has been electronically signed by: Uriel Cornejo M.D. on 03/25/2025 22:02:32
[2025-03-25 20:46] VITALS: BP 109/82; PULSE 83; RESP 18; TEMP 36.8; O2SAT 98; BMI 30.3
--- NOTE | 2025-03-25 20:47 | ED_ITS ---
HPI - General Adult General Chief complaint: Wound/Laceration Stated complaint: right thumb injury Related Data Home Medications ?Medication ?Instructions ?Recorded ?Confirmed escitalopram oxalate 10 mg tablet 10 mg PO DAILY 12/03/24 Allergies Allergy/AdvReac Type Severity Reaction Status Date / Time No Known Allergies Allergy Verified 03/25/25 20:48 REPLACED BY [facility] Past Medical History Medical History Head ache Shingles Social History Social History Alcohol intake: current Alcohol intake frequency: does not drink Smoked in Last 30 Days: Yes Use of substances other than those prescribed or required for medical reasons: No Advance Directives: No Advance Directives Information Provided: Yes Do you have a plan to hurt others: No Plan Physical Exam ED Vital Signs: Vital Signs - 24 hr 03/25/25 20:46 03/25/25 23:43 Temperature 98.3 F 97.9 F Pulse Rate 83 70 Respiratory Rate 18 18 Blood Pressure 109/82 125/87 Pulse Oximetry 98 96 Oxygen Delivery Method Room Air Room Air BMI result Body Mass Index 30.3 Course Course Course Narrative: This is an RME performed by Larry Pretty CNP: Additional HPI, ROS, PE not included below will be deferred to primary provider. Patient is a 29-year-old male who presents emergency department for evaluation, sustaining an accidental laceration to the distal tip of the right thumb and nail, from a drill bit. Reports last tetanus vaccination < 5 years. Lab: XR to evaluate for osseous involvement Reevaluation(s) Reevaluation #1: LWCT from . XR no acute pathology RIGHT FINGER X-RAYS COMPARISON: 09/06/2022. FINDINGS: A total of 3 views of the right thumb were obtained. There is no evidence of an acute fracture or dislocation. There are no bony destructive changes. No metallic foreign body. IMPRESSION: 1. No acute disease Discharge Plan Discharge Clinical Impression: Avulsion of skin Patient Disposition: Left W/O Completing Treatment Prescriptions: No Action escitalopram oxalate 10 mg tablet 10 mg PO DAILY Discharge Date/Time: 03/26/25 00:52
[2025-03-25 23:43] VITALS: BP 125/87; PULSE 70; RESP 18; TEMP 36.6; O2SAT 96
--- OUTSIDE RECORDS SUMMARY | 2025-03-26 00:01 | XMS_ITS | Encounter Summary ---
Author Organization [employer] Address [address] [place] [address] Care Team Providers Care Supervisor Metalizing Name Role Phone Allison Villela MD Primary Care Provider Encounter Details Date Type Department Care Team (Late st Contact Info) Description 02/01/2025 Telephone [facility] [address], [place] [phone] Allison Villela MD [address], [place] [phone] Social History Tobacco Use Types Packs/Day Years Used Date Smoking Tobacco: Every Day Cigarettes Passive Smoke Exposure: Never Smokeless Tobacco: Never Alcohol Use Standard Drinks/Week Comments Not Currently 0 (1 standard drink = 0.6 oz pur e alcohol) rare Alcohol Answer Date Recorded Frequency of Alcohol Consumption Not on file 11/03/2023 Average Number of Drinks Not on file 023 Frequency of Binge Drinking Not on file 10/24 Score 0 11/03/2023 Depression Answer Date Recorded Patient Health Questionnaire-9 Score 0 11/10/2024 Patient Health Questionnaire-9 Score 0 11/10/2024 Last PHQ-9: Questionnaire Data Not on file 1 01/11/2024 Housing Stability Answer Date Recorded What is your housing situation today? I have leon valentin 09/10/[address] you li ve. Do you have problems with any of the following? None of the above 09/10/2023 Food Insecurity Answer Date Recorded Within the past 12 months, y ou worried that your food would run out before you got money to buy more: Never True 09/10/2023 Within the past 12 months,th e food you bought just didn't last and you didn't have enough money to get more: Never True Transportation Answer Date Recorded In the past 12 months, has l ack of transportation kept you from medical appts, meetings, work or from getting things needed for daily living? No 11/01/2024 Utilities Answer Date Recorded In the past 12 months, has t he electric, gas, oil or water company threatened to shut off services in your home? No 09/10/2023 Depression Answer Date Recorded Patient Health Questionnaire-2 Score 0 11/10/2024 Internet Access Answer Date Recorded Internet Access Q1 Yes 11/01/2024 Internet Access Q2 Not on file 11/01/2024 Sex and Gender Information Value Date Recorded Sex Assigned at Male 09/23/2022 10:30 AM EDT Legal Sex Male 10:30 AM EDT Gender Identity Male 09/23/2022 10:30 AM EDT Sexual Orientation Choose not to disclose 2021 10:30 AM EDT documented as of this encounter Plan of Treatment Upcoming Encounters Date Type Department Care Team (Late st Contact Info) Description 04/19/2025 10:15 AM EDT Office Visit [facility] [address] [place] [address] Allison Villela MD [address] [place] [phone] documented as of this encounter Visit Diagnoses Not on filedocumented in this encounter Additional Health Concerns Assessment Noted Time PHQ-9 Depression Total Score: 0 11/10/20 24 9:40 AM EST documented as of this encounter Care Teams Supervisor Metalizing Relationship Specialty Start Date End Date Allison Villela MD [address] [place] [id number] PCP - General Family Medicine 12/08/20 documented as of this encounter
--- NOTE | 2025-03-26 00:53 | PC.NURSE ---
Pt left prior to being seen by ED Provider. Pt's right thumb had been wrapped with non-adherent gauze prior to leaving. Pt A&Ox4 and ambulated independently out of the department.
== END 2025-03-26 00:52 | disposition left against medical advice (07) ==
PROVIDERS: Emergency Provider Emergency Medicine; PCP General Practice
DX: S61.101A Unspecified open wound of right thumb with damage to nail, initial encounter (principal); W29.8XXA Contact with other powered hand tools and household machinery, initial encounter; Y93.9 Activity, unspecified; Y92.9 Unspecified place or not applicable; Y99.9 Unspecified external cause status
CPT/HCPCS: 73140; 99283; 99284

== ENCOUNTER → 2025-03-25 20:50 | Outpatient (BNV) | payer MEDICAID, SELFPAY | PROVIDERS: Visit Provider Radiology Diagnostic Radiology | DX: S61.011A Laceration without foreign body of right thumb without damage to nail, initial encounter (principal) | CPT/HCPCS: 73140 ==